=== PATIENT | female | born 1980 | race Caucasian/White ===

== ENCOUNTER 2023-04-19 19:17 | Emergency (ER) | payer OTHER, SELFPAY | END 2023-04-19 20:50 | disposition left against medical advice (07) | PROVIDERS: Emergency Provider Emergency Medicine | DX: M25.532 Pain in left wrist (principal) ==

== ENCOUNTER 2023-04-20 08:37 | Emergency (ER) | payer OTHER, SELFPAY ==
--- NOTE | ~2023-04-20 | XR_ITS ---
EXAMINATION: X-ray left forearm X-ray left wrist CLINICAL INFORMATION: Injury, fall. COMPARISON: None TECHNIQUE: Wrist 4 views. Forearm 2 views. FINDINGS: Wrist: There is a acute, comminuted distal radial fracture involving the epiphysis and metaphysis. Possible subtle intra-articular extension into the radioulnar joint.. No significant displacement. No additional acute fracture is seen. No definitive scaphoid fracture seen. Lucency in the proximal trapezium, probably degenerative. Bony alignment is maintained. There is soft tissue swelling. Bony alignment is maintained. Forearm: Acute, comminuted distal radial fracture as described above. No additional fractures identified. Elbow articulation is maintained. No large elbow joint effusion is seen. Soft tissue swelling of the wrist/distal forearm. XR/XR forearm LT 2V IMPRESSION: Acute, comminuted distal radial fracture. No significant displacement. There could be subtle intra-articular extension. Soft tissue swelling of the wrist/distal forearm.
--- NOTE | ~2023-04-20 | XR_ITS ---
EXAMINATION: X-ray left forearm X-ray left wrist CLINICAL INFORMATION: Injury, fall. COMPARISON: None TECHNIQUE: Wrist 4 views. Forearm 2 views. FINDINGS: Wrist: There is a acute, comminuted distal radial fracture involving the epiphysis and metaphysis. Possible subtle intra-articular extension into the radioulnar joint.. No significant displacement. No additional acute fracture is seen. No definitive scaphoid fracture seen. Lucency in the proximal trapezium, probably degenerative. Bony alignment is maintained. There is soft tissue swelling. Bony alignment is maintained. Forearm: Acute, comminuted distal radial fracture as described above. No additional fractures identified. Elbow articulation is maintained. No large elbow joint effusion is seen. Soft tissue swelling of the wrist/distal forearm. XR/XR wrist LT min 3V IMPRESSION: Acute, comminuted distal radial fracture. No significant displacement. There could be subtle intra-articular extension. Soft tissue swelling of the wrist/distal forearm.
[2023-04-20 08:53] VITALS: BP 130/89; PULSE 94; RESP 18; TEMP 36.8; O2SAT 97; BMI 22.6
--- NOTE | 2023-04-20 09:13 | PC.NURSE ---
patient a&ox3, pt had xray performed, awaiting provider, will continue to monitor
--- NOTE | 2023-04-20 10:34 | ED_ITS ---
HPI - Extremity Problem General Chief complaint: Extremity Injury, Upper Stated complaint: fall wrist injury Time Seen by Provider: 04/20/23 09:10 Source: patient Mode of arrival: ambulatory Limitations: no limitations History of Present Illness HPI Narrative: 42yo female right hand dominant ,otherwise healthy here with complaints of left wrist pain/swelling. patient reports last evening she had a slip and fall landing on her outstretched hand on the left side causing immediate pain and swelling. no head strike or loc She denies any numbness, tingling or weakness of the extremity. Related Data Allergies Allergy/AdvReac Type Severity Reaction Status Date / Time No Known Allergies Allergy Verified 04/20/23 08:56 Review of Systems Review of Systems: Yes all other systems are reviewed and are negative Constitutional: Constitutional: Reports no additional constitutional complaints, Denies body ache(s), Denies chills, Denies fever(s), Denies headache(s) and Denies weakness Eyes: Eyes: Reports no additional eye complaints and Denies change in vision ENT: Reports system reviewed and no additional complaints, except as documented, Denies dizziness, Denies headache(s), Denies nasal congestion, Denies nasal discharge and Denies neck pain Cardiovascular: Cardiovascular: Reports no additional cardiovascular complaints, Denies chest pain, Denies leg edema and Denies dyspnea Respiratory: Respiratory: Reports no additional respiratory complaints, Denies cough and Denies dyspnea Gastrointestinal: Gastrointestinal: Reports no additional gastrointestinal c omplaints, Denies abdominal pain, Denies diarrhea, Denies nausea and Denies vomiting Genitourinary: Genitourinary: Reports no additional female genitourinary complaints and Denies urinary incontinence Musculoskeletal: Musculoskeletal: Reports no additional musculoskeletal complaints, Denies back pain, Reports arthralgias, Reports joint swelling, Denies neck pain, Denies numbness and Denies tingling Integumentary/Breasts: Skin/Breast: Reports system reviewed and no additional complaints, except as docu and Denies rash Neurologic: Reports system reviewed and no additional complaints, except as documented, Denies Abnormal speech present, Denies dizziness, Denies headache(s), Denies numbness, Denies tingling and Denies weakness FORMERLY [facility], [facility] Past Medical History Attestation statement: The following information was validated with the patient. Source: old records reviewed and nursing notes reviewed Social History Social History Advance Directives: No Advance Directives Information Provided: No Physical Exam Vital Signs: Vital Signs: Last Vital Signs Temp 98.3 F 04/20/23 08:53 Pulse 94 04/20/23 08:53 Resp 18 04/20/23 08:53 BP 130/89 04/20/23 08:53 Pulse Ox 97 04/20/23 08:53 O2 Del Method Room Air 04/20/23 08:53 BMI result Body Mass Index 22.6 Const: General: cooperative, healthy appearing, comfortable and no acute distress Orientation/consciousness: patient oriented x3 Limitations: no limitations HEENT: Head: Yes normal to inspection Ears: hearing grossly normal bilaterally General nose exam: Normal external nose present Face and sinus: Yes normal facial exam Mouth: Normal oral and palatal mucosa present Throat: Yes posterior oropharynx normal Eyes: General: appearance normal, both eyes and all related structures Pupils: Equal, round and reactive pupils present Neck: Neck: Yes normal visual inspection Chest: Chest palpation & inspection: normal inspection of the chest Resp: Effort & Inspection: normal respiratory effort Auscultation: clear to auscultation bilaterally Cardio: Rate: regular rate Rhythm: regular rhythm Peripheral pulses: Peripheral pulses 2+ throughout GI: Inspection: Yes normal to inspection Palpation (GI): Soft to palpation and nontender Auscultation: normal bowel sounds Back/Spine/Pelvis: Thoracic/Lumbar Spine: thoracic and lumbar spine normal to inspection Skin: General skin exam: no rashes or lesions noted Neuro: General: patient oriented x3, no focal motor deficits and normal sensation to monofilament Cranial nerves: Yes Equal, round and reactive pupils present Cognition (Neuro): normal cognition Speech: No Abnormal speech present Gait exam (Neuro): Normal gait present Motor exam (neuro): 5/5 motor strength present throughout Extrem: Other: +swelling to left dorsal wrist 2+ radial and ulnar pulses normal sensation limited passive and active range of motion of the left wrist due to pain no pain on palpation over the hand, elbow or shoulder on the left side. Medical Decision Making Medical Decision Making MDM Narrative: 42yo female right hand dominant ,otherwise healthy here with complaints of left wrist pain/swelling. patient reports last evening she had a slip and fall landing on her outstretched hand on the left side causing immediate pain and swelling. no head strike or loc She denies any numbness, tingling or weakness of the extremity. +swelling to left dorsal wrist 2+ radial and ulnar pulses normal sensation limited passive and active range of motion of the left wrist due to pain no pain on palpation over the hand, elbow or shoulder on the left side. Will check x-rays Differential Diagnosis Differential Diagnoses: The differential diagnosis associated with the presentation includes fracture, sprain, strain, dislocation low concern for vascular injury Admission/Observation Consideration of admission/observation: Escalation of care including admission/observation considered left distal radial fracture on x-ray. Will need splint and outpatient orthopedic consultation. no complicated fracture, dislocation or concern for vascular injury requiring advanced imaging or urgent orthopedic consultation Independent Interpretation I performed an independent interpretation of an: Plain X-Ray Interpretation: I independently reviewed the x-ray and agree with Radiology report Radiology Impression Discussion of test interpretation with radiology: I have reviewed the radiologist's reading. Radiologist Impression: [place] [id number] XRay Report Signed Patient: Lucia Salazar MR#: [id number] : 1980 Acct:[id number] Age/Sex: 42 / F ADM Date: 04/20/23 Loc: HO.ED Attending Dr: Ordering Physician: Generic ED Physician Date of Service: 04/20/23 Procedure(s): XR forearm LT 2V Accession Number(s): [id number] cc: Generic ED Physician; Physician,Unknown ~ EXAMINATION: X-ray left forearm X-ray left wrist CLINICAL INFORMATION: Injury, fall. COMPARISON: None TECHNIQUE: Wrist 4 views. Forearm 2 views. FINDINGS: Wrist: There is a acute, comminuted distal radial fracture involving the epiphysis and metaphysis. Possible subtle intra-articular extension into the radioulnar joint.. No significant displacement. No additional acute fracture is seen. No definitive scaphoid fracture seen. Lucency in the proximal trapezium, probably degenerative. Bony alignment is maintained. There is soft tissue swelling. Bony alignment is maintained. Forearm: Acute, comminuted distal radial fracture as described above. No additional fractures identified. Elbow articulation is maintained. No large elbow joint effusion is seen. Soft tissue swelling of the wrist/distal forearm. XR/XR forearm LT 2V IMPRESSION: Acute, comminuted distal radial fracture. No significant displacement. There could be subtle intra-articular extension. Soft tissue swelling of the wrist/distal forearm. Tests considered The following testing was considered but not selected: no complicated fracture, dislocation or concern for vascular injury requiring advanced imaging Prescription Management I considered prescription management with: Pain Medication Procedures Orthopedic Splinting/Casting Injury #1: Side: left Upper Extremity Injury Location: wrist Upper Extremity Immobilizer: sling/shoulder immobilizer and sugar tong splint Discharge Plan Discharge Clinical Impression: Fracture of wrist Patient Disposition: Home, Self-Care Instructions: Wrist Fracture in Adults (ED), Splint Care (ED) Additional Instructions: take Motrin 3 times daily to help with swelling and pain do not get the splint wet keep the arm elevated call orthopedics Saturday to schedule an appointment to follow-up Referrals: [facility] [place] [facility] [Provider Group] - 1 week
== END 2023-04-20 10:47 | disposition home or self-care (01) ==
PROVIDERS: Emergency Provider Emergency Medicine
DX: S52.592A Other fractures of lower end of left radius, initial encounter for closed fracture (principal); W01.0XXA Fall on same level from slipping, tripping and stumbling without subsequent striking against object, initial encounter; Y93.9 Activity, unspecified; Y92.9 Unspecified place or not applicable; Y99.9 Unspecified external cause status
CPT/HCPCS: 29125; 73090; 73110; 99282; 99283